=== PATIENT | male | born 1990 | race American Indian/Alaskan Native ===

== ENCOUNTER 2017-01-01 21:00 | Emergency (ER) | payer MEDICAID, OTHER ==
[2017-01-01] MEDS ORDERED: HYDROmorphone 1 MG/ML Syringe IM ONE (21:45)
[2017-01-01] MEDS ORDERED: Promethazine 25 MG/ML SDV IM ONE (21:45)
--- NOTE | 2017-01-01 21:57 | EDM.PDOC ---
ED HPI GENERAL MEDICAL PROBLEM - General Chief Complaint: Upper Extremity Injury/Pain Stated Complaint: BROKEN HAND Time Seen by Provider: 01/01/17 21:52 Source of Information: Reports: Patient History Limitations: Reports: No Limitations - History of Present Illness INITIAL COMMENTS - FREE TEXT/NARRATIVE: injured right wrist during bull ride. Treatments DEBIT AGENT: Reports: Other (see below) Other Treatments DEBIT AGENT: none - Related Data Allergies Allergy/AdvReac Type Severity Reaction Status Date / Time No Known Allergies Allergy Verified 01/01/17 21:26 Home Meds: Home Meds Albuterol [Proventil HFA] 2 puff INH Q4H PRN 08/10/13 [History] Cyclobenzaprine HCl [Cyclobenzaprine HCl] 10 mg PO TID PRN 08/10/13 [History] Omeprazole [Omeprazole] 20 mg PO BID 08/10/13 [History] Asorbic Acid DAILY 01/01/17 [History] Docusate Sodium [Stool Softener] 100 mg PO DAILY 01/01/17 [History] Ferrous Sulfate [Iron] 325 mg PO DAILY 01/01/17 [History] Multivitamin [Multivitamins] 1 each PO DAILY 01/01/17 [History] azaTHIOprine [Imuran] 5 tab PO DAILY 01/01/17 [History] Social & Family History - Tobacco Use Years of Tobacco use: 10 Second Hand Smoke Exposure: No - Alcohol Use Days Per Week of Alcohol Use: 0 Number of Drinks Per Day: 2 Total Drinks Per Week: 0 - Recreational Drug Use Recreational Drug Use: No Drug Use in Last 12 Months: Yes Recreational Drug Type: Reports: Marijuana/Hashish Recreational Drug Use Frequency: Not Used In Over 3 Months Review of Systems - Review of Systems Review Of Systems: ROS reveals no pertinent complaints other than HPI. ED EXAM, GENERAL - Physical Exam Exam: See Below Exam Limited By: No Limitations General Appearance: Alert, WD/WN, Mild Distress, Other (pain) Ears: Hearing Grossly Normal Throat/Mouth: Normal Voice, No Airway Compromise Head: Atraumatic Neck: Non-Tender, Full Range of Motion Respiratory/Chest: No Respiratory Distress Cardiovascular: Regular Rate, Rhythm GI/Abdominal: Soft, Non-Tender Extremities: Limited Range of Motion, Other (right wrist swollen tender R/P, NV wnl, ) Neurological: Alert, Oriented, Normal Cognition, Normal Gait, No Motor/Sensory Deficits Psychiatric: Normal Affect, Normal Mood Skin Exam: Warm, Dry Lymphatic: No Adenopathy Course - Orders/Labs/Meds Orders: Active Orders 24 hr Category Date Time Status Wrist 2V Rt [CR] Urgent Exams 01/01/17 21:24 Stop Req Wrist 2V Rt [CR] Urgent Exams 01/01/17 21:42 Ordered Meds: Medications Discontinued Medications Generic Name Dose Route Start Last Admin Trade Name Freq PRN Reason Stop Dose Admin Hydromorphone HCl 1 mg 01/01/17 21:45 Dilaudid IM 01/01/17 21:46 ONETIME ONE Promethazine HCl 25 mg 01/01/17 21:45 Phenergan IM 01/01/17 21:46 ONETIME ONE Departure - Departure Time of Disposition: 21:55 Disposition: Home, Self-Care 01 Condition: Good Clinical Impression: Fracture of radius Qualifiers: Encounter type: initial encounter Radius location: distal Fracture type: closed Fracture morphology: unspecified fracture morphology Laterality: right Qualified Code(s): S52.501A - Unspecified fracture of the lower end of right radius, initial encounter for closed fracture - Discharge Information Instructions: Wrist Fracture Treated With Immobilization, [id number] Forms: ED Department Discharge Additional Instructions: 1) wear splint and sling until re-evaluated by orthopedist 2) ice intermittently for swelling 3) see clinic Wednesday for ORTHOPEDIC REFERRAL rx given; vicodin 5/325mg tid prn x 12 - My Orders Last 24 Hours: My Active Orders 01/01/17 21:24 Wrist 2V Rt [CR] Urgent 01/01/17 21:42 Wrist 2V Rt [CR] Urgent - Assessment/Plan Last 24 Hours: My Active Orders 01/01/17 21:24 Wrist 2V Rt [CR] Urgent 01/01/17 21:42 Wrist 2V Rt [CR] Urgent
[2017-01-01] MEDS ORDERED: Acetaminophen/HYDROcodone 325-10 MG Tab PO ONE (22:27)
[2017-01-01] MEDS ORDERED: Acetaminophen/HYDROcodone 325-10 MG Tab ONE (22:27)
[2017-01-02 01:24] VITALS: BP 116/65
== END 2017-01-01 22:32 | disposition home or self-care (01) ==
LOC: DL.ED 21:00
DX: S52.501A Unspecified fracture of the lower end of right radius, initial encounter for closed fracture (principal); Z79.899 Other long term (current) drug therapy; X58.XXXA Exposure to other specified factors, initial encounter; Y93.I9 Activity, other involving external motion
CPT/HCPCS: 73100; 96372; 99283; J1170; J2550; A9270-GY